=== PATIENT | male | born 1960 | race Caucasian/White ===

== ENCOUNTER 2020-02-07 10:47 | Inpatient (IN) | payer OTHER ==
[~2020-02-07] VITALS: Ht 175.3 cm; Wt 79.5 kg
[2020-02-07] MEDS ORDERED: MORPHINE SULFATE 4 MG/ML VIAL. IV/SQ PRN (11:45)
[2020-02-07] MEDS ORDERED: NITROGLYCERIN SUBLINGUAL 0.4 MG BOTTLE OF 25. SL PRN ×2 (11:45→15:00)
--- NOTE | 2020-02-07 11:50 | RAD ---
PORTABLE CHEST 1V Clinical Indication: Reason: chest pain Comparison: None. Findings: The cardiomediastinal silhouette is normal. Linear opacity in the peripheral left midlung may be discoid atelectasis or scarring. Lungs are otherwise clear. There is no pneumothorax. No pleural effusion is appreciated. No acute bone abnormality. IMPRESSION: Minimal peripheral left midlung discoid atelectasis or scarring. Electronically signed by: Karel Roman MD (02/07/2020 11:47 AM) [id number]
[2020-02-07 11:58] LABS: BASO % 1 % (0-3); EOS # 0.1 x10^3/uL (0.0-0.7); EOS % 2 % (0-3); HEMATOCRIT 47.1 % (39.0-53.0); HEMOGLOBIN 16.9 g/dL (13.0-17.5); LYMPH # 0.9 x10^3/uL (1.0-4.8); LYMPH % 17 % (24-48); MEAN CORPUSCULAR HEMOGLOBIN 32 pg (25-35); MEAN CORPUSCULAR HGB CONC 36 g/dL (31-37); MEAN CORPUSCULAR VOLUME 89 fL (79-100); MONO # 0.3 x10^3/uL (0.0-1.1); MONO % 7 % (0-9); NEUT # 3.9 x10^3/uL (1.8-7.7); NEUT % 74 % (31-73); PLATELET COUNT 161 x10^3/uL (140-400); RED BLOOD COUNT 5.28 x10^6/uL (4.30-5.70); RED CELL DISTRIBUTION WIDTH 12.8 % (11.5-14.5); WHITE BLOOD COUNT 5.2 x10^3/uL (4.0-11.0)
[2020-02-07 12:08] LABS: CALCIUM 8.7 mg/dL (8.5-10.1); CREATININE 1.1 mg/dL (0.7-1.3); GFR 67.8; POTASSIUM 4.4 mmol/L (3.5-5.1)
[2020-02-07 12:15] LABS: ALBUMIN 3.4 g/dL (3.4-5.0); ALBUMIN/GLOBULIN RATIO 1.1 (1.0-1.7); MAGNESIUM 1.7 mg/dL (1.8-2.4); TOTAL BILIRUBIN 0.5 mg/dL (0.2-1.0); TOTAL PROTEIN 6.6 g/dL (6.4-8.2)
[2020-02-07] MEDS ORDERED: ASPIRIN 325 MG TABLET PO ONE (12:15)
[2020-02-07 12:17] LABS: PROTHROMBIN TIME PATIENT 12.2 SEC (11.7-14.0)
[2020-02-07 12:23] LABS: BILIRUBIN,URINE NEGATIVE (NEG); CLARITY,URINE CLEAR; COLOR,URINE YELLOW; NITRITE,URINE NEGATIVE (NEG); PROTEIN,URINE NEGATIVE (NEG-TRACE); UROBILINOGEN,URINE 0.2 mg/dL (0.2 mg/dL)
[2020-02-07 12:30] LABS: AMPHETAMINE/METHAMPHETAMINE NEG (NEG); BARBITURATES NEG (NEG); BENZODIAZEPINES NEG (NEG); CANNABINOIDS NEG (NEG); COCAINE NEG (NEG); METHADONE NEG (NEG); OPIATES NEG (NEG); PHENCYCLIDINE NEG (NEG)
[2020-02-07 13:00] LABS: BACTERIA,URINE 0 /HPF (0-FEW); RBC,URINE OCC /HPF (0-2); WBC,URINE 0 /HPF (0-4)
--- NOTE | 2020-02-07 14:31 | PDOC1 ---
History and Physical Date of Admission Date of Admission DATE: 02/07/20 TIME: 14:30 Identification/Chief Complaint Chief Complaint seen in er with acute NSTEMI 60 year old male with no significant medical history who presents to the ED today complaining of 5 out of 10 left jaw pain that occurred yesterday between the time he woke up to around midday and subsided. Patient describes the pain as discomfort. Denies anything specifically relieving or worsening the pain. He states he thought he probably clenched his teeth the wrong way hence the reason for the pain. this morning he Awoke up with a similar pain that radiated into his chest and left arm and also going to the right arm. 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 Past Medical History Cardiovascular: Hyperlipidemia Psych: No pertinent hx Rheumatologic: No pertinent hx Infectious disease: No pertinent hx Renal/: No pertinent hx Endocrine: No pertinent hx, Diabetes Family History Family History: Heart Disease Family History: Parent (FATHER HAD STENTS IN HIS 80'S) Social History Smoke: No ALCOHOL: none Drugs: None Current Medications Current Medications Current Medications Aspirin (Senia Aspirin) 325 mg 1X ONCE PO ; Start 02/07/20 at 12:15; Stop 02/07/20 at 12:16; Status DC Nitroglycerin (Nitrostat) 0.4 mg PRN Q5MIN PRN SL CP RATING > 1/10; Start 02/07/20 at 11:45; Stop 02/08/20 at 11:44 Morphine Sulfate (Morphine Sulfate) 4 mg PRN Q15MIN PRN IV/SQ PAIN GREATER THAN 3/10; Start 02/07/20 at 11:45; Stop 02/08/20 at 11:44 Allergies Allergies: Coded Allergies: No Known Drug Allergies (Unverified , 02/07/20) ROS Review of System Review of Systems: Constitutional: Denies fever or chills. [] Eyes: Denies change in visual acuity. [] HENT: Denies nasal congestion or sore throat. [] Respiratory: Denies cough or shortness of breath. [] Cardiovascular: Reports chest pain, BILATERAL MANDIDULAR PAIN GI: Denies abdominal pain, nausea, vomiting, bloody stools or diarrhea. [] : Denies dysuria. [] Musculoskeletal: Denies back pain or joint pain. [] Integument: Denies rash. [] Neurologic: Denies headache, focal weakness or sensory changes. [] Psychiatric: Denies depression or anxiety. 14 PT ROS OTHERWISE NEG PSYCHOLOGICAL ROS: No: Anxiety, Behavioral Disorder, Concentration difficultie, Decreased libido, Depression, Disorientation, Hallucinations, Hostility, Irritablity, Memory difficulties, Mood Swings, Obsessive thoughts, Physical abuse, Sexual abuse, Sleep disturbances, Suicidal ideation, Other ALLERGY AND IMMUNOLOGY: No: Hives, Insect Bite Sensitivity, Itchy/Watery Eyes, Nasal Congestion, Post Nasal Drip, Seasonal Allergies, Other Hematological and Lymphatic: No: Bleeding Problems, Blood Clots, Blood Transfusions, Brusing, Night Sweats, Pallor, Swollen Lymph Nodes, Other Respiratory: No: Cough, Hemoptysis, Orthopnea, Pleuritic Pain, Shortness of breath, SOB with excertion, Sputum Changes, Stridor, Tachypnea, Wheezing, Other Cardiovascular: yes Chest Pain Gastrointestinal: No Nausea, No Vomiting, No Abdominal Pain, No Diarrhea, No Constipation, No Melena, No Hematochezia, No Other Musculoskeletal: No Gait Disturbance, No Joint Pain, No Joint Stiffness, No Joint Swelling, No Muscle Pain, No Muscular Weakness, No Pain In:, No Swelling In:, No Other Skin: No Dry Skin, No Eczema, No Hair Changes, No Lumps, No Mole Changes, No Mottling, No Nail Changes, No Pruritus, No Rash, No Skin Lesion Changes, No Other, No Acne Physical Exam Physical Exam Well developed, well nourished, no acute distress, non-toxic appearance. [] HENT: Normocephalic, atraumatic, bilateral external ears normal, oropharynx moist, no oral exudates, nose normal. [] Eyes: PERRLA, EOMI, conjunctiva normal, no discharge. [] Neck: Normal range of motion, no tenderness, supple, no stridor. [] Cardiovascular:Heart rate regular rhythm, no murmur [] Lungs & Thorax: Bilateral breath sounds clear to auscultation [] Abdomen: Bowel sounds normal, soft, no tenderness, no masses, no pulsatile masses. [] Skin: Warm, dry, no erythema, no rash. [] Back: No tenderness, no CVA tenderness. [] Extremities: No tenderness, no cyanosis, no clubbing, ROM intact, no edema. [] Neurologic: Alert and oriented X 3, normal motor function, normal sensory func tion, no focal deficits noted. [] Psychologic: Affect normal, judgment normal, mood normal. [] General: No acute distress HEENT: Atraumatic, PERRLA, EOMI, Mucous membr. moist/pink Lungs: Clear to auscultation, Normal air movement Heart: RRR, no gallops, no murmurs Breasts: Not examined Abdomen: Normal bowel sounds, Soft Rectal Exam: not examined Extremities: No cyanosis, No edema Skin: No significant lesion Neuro: Normal speech, Strength at 5/5 X4 ext, Sensation intact, Cranial nerves 3-12 NL Psych/Mental Status: Mental status NL, Mood NL Vitals Vitals Vital Signs Date Time Temp Pulse Resp B/P (MAP) Pulse Ox O2 Delivery O2 Flow Rate FiO2 02/07/20 10:50 98.4 92 16 168/87 (114) 98 Room Air 98.4 Labs Labs Laboratory Tests Test 02/07/20 11:01 02/07/20 11:54 White Blood Count 5.2 x10^3/uL (4.0-11.0) Red Blood Count 5.28 x10^6/uL (4.30-5.70) Hemoglobin 16.9 g/dL (13.0-17.5) Hematocrit 47.1 % (39.0-53.0) Mean Corpuscular Volume 89 fL (79-100) Mean Corpuscular Hemoglobin 32 pg (25-35) Mean Corpuscular Hemoglobin Concent 36 g/dL (31-37) Red Cell Distribution Width 12.8 % (11.5-14.5) Platelet Count 161 x10^3/uL (140-400) Neutrophils (%) (Auto) 74 % (31-73) Lymphocytes (%) (Auto) 17 % (24-48) Monocytes (%) (Auto) 7 % (0-9) Eosinophils (%) (Auto) 2 % (0-3) Basophils (%) (Auto) 1 % (0-3) Neutrophils # (Auto) 3.9 x10^3/uL (1.8-7.7) Lymphocytes # (Auto) 0.9 x10^3/uL (1.0-4.8) Monocytes # (Auto) 0.3 x10^3/uL (0.0-1.1) Eosinophils # (Auto) 0.1 x10^3/uL (0.0-0.7) Basophils # (Auto) 0.0 x10^3/uL (0.0-0.2) Prothrombin Time 12.2 SEC (11.7-14.0) Prothromb Time International Ratio 0.9 (0.8-1.1) Sodium Level 137 mmol/L (136-145) Potassium Level 4.4 mmol/L (3.5-5.1) Chloride Level 100 mmol/L (98-107) Carbon Dioxide Level 30 mmol/L (21-32) Anion Gap 7 (6-14) Blood Urea Nitrogen 14 mg/dL (8-26) Creatinine 1.1 mg/dL (0.7-1.3) Estimated GFR (Cockcroft-Gault) 67.8 BUN/Creatinine Ratio 13 (6-20) Glucose Level 275 mg/dL (70-99) Calcium Level 8.7 mg/dL (8.5-10.1) Magnesium Level 1.7 mg/dL (1.8-2.4) Total Bilirubin 0.5 mg/dL (0.2-1.0) Aspartate Amino Transf (AST/SGOT) 21 U/L (15-37) Alanine Aminotransferase (ALT/SGPT) 45 U/L (16-63) Alkaline Phosphatase 135 U/L (46-116) Troponin I Quantitative 0.032 ng/mL (0.000-0.055) BE-Oho-R-Type Natriuretic Peptide 50 pg/mL (0-124) Total Protein 6.6 g/dL (6.4-8.2) Albumin 3.4 g/dL (3.4-5.0) Albumin/Globulin Ratio 1.1 (1.0-1.7) Thyroid Stimulating Hormone (TSH) 1.375 uIU/mL (0.358-3.74) Urine Collection Type Unknown Urine Color Yellow Urine Clarity Clear Urine pH 7.0 (<5.0-8.0) Urine Specific [place] 1.015 (1.000-1.030) Urine Protein Negative mg/dL (NEG-TRACE) Urine Glucose (UA) 500 mg/dL (NEG) Urine Ketones (Stick) Negative mg/dL (NEG) Urine Blood Negative (NEG) Urine Nitrite Negative (NEG) Urine Bilirubin Negative (NEG) Urine Urobilinogen Dipstick 0.2 mg/dL (0.2 mg/dL) Urine Leukocyte Esterase Negative (NEG) Urine RBC Occ /HPF (0-2) Urine WBC 0 /HPF (0-4) Urine Bacteria 0 /HPF (0-FEW) Urine Mucus Mod /LPF Urine Opiates Screen Neg (NEG) Urine Methadone Screen Neg (NEG) Urine Barbiturates Neg (NEG) Urine Phencyclidine Screen Neg (NEG) Urine Amphetamine/Methamphetamine Neg (NEG) Urine Benzodiazepines Screen Neg (NEG) Urine Cocaine Screen Neg (NEG) Urine Cannabinoids Screen Neg (NEG) Urine Ethyl Alcohol Neg (NEG) Laboratory Tests Test 02/07/20 11:01 02/07/20 11:54 White Blood Count 5.2 x10^3/uL (4.0-11.0) Red Blood Count 5.28 x10^6/uL (4.30-5.70) Hemoglobin 16.9 g/dL (13.0-17.5) Hematocrit 47.1 % (39.0-53.0) Mean Corpuscular Volume 89 fL (79-100) Mean Corpuscular Hemoglobin 32 pg (25-35) Mean Corpuscular Hemoglobin Concent 36 g/dL (31-37) Red Cell Distribution Width 12.8 % (11.5-14.5) Platelet Count 161 x10^3/uL (140-400) Neutrophils (%) (Auto) 74 % (31-73) Lymphocytes (%) (Auto) 17 % (24-48) Monocytes (%) (Auto) 7 % (0-9) Eosinophils (%) (Auto) 2 % (0-3) Basophils (%) (Auto) 1 % (0-3) Neutrophils # (Auto) 3.9 x10^3/uL (1.8-7.7) Lymphocytes # (Auto) 0.9 x10^3/uL (1.0-4.8) Monocytes # (Auto) 0.3 x10^3/uL (0.0-1.1) Eosinophils # (Auto) 0.1 x10^3/uL (0.0-0.7) Basophils # (Auto) 0.0 x10^3/uL (0.0-0.2) Prothrombin Time 12.2 SEC (11.7-14.0) Prothromb Time International Ratio 0.9 (0.8-1.1) Sodium Level 137 mmol/L (136-145) Potassium Level 4.4 mmol/L (3.5-5.1) Chloride Level 100 mmol/L (98-107) Carbon Dioxide Level 30 mmol/L (21-32) Anion Gap 7 (6-14) Blood Urea Nitrogen 14 mg/dL (8-26) Creatinine 1.1 mg/dL (0.7-1.3) Estimated GFR (Cockcroft-Gault) 67.8 BUN/Creatinine Ratio 13 (6-20) Glucose Level 275 mg/dL (70-99) Calcium Level 8.7 mg/dL (8.5-10.1) Magnesium Level 1.7 mg/dL (1.8-2.4) Total Bilirubin 0.5 mg/dL (0.2-1.0) Aspartate Amino Transf (AST/SGOT) 21 U/L (15-37) Alanine Aminotransferase (ALT/SGPT) 45 U/L (16-63) Alkaline Phosphatase 135 U/L (46-116) Troponin I Quantitative 0.032 ng/mL (0.000-0.055) AM-Bog-Y-Type Natriuretic Peptide 50 pg/mL (0-124) Total Protein 6.6 g/dL (6.4-8.2) Albumin 3.4 g/dL (3.4-5.0) Albumin/Globulin Ratio 1.1 (1.0-1.7) Thyroid Stimulating Hormone (TSH) 1.375 uIU/mL (0.358-3.74) Urine Collection Type Unknown Urine Color Yellow Urine Clarity Clear Urine pH 7.0 (<5.0-8.0) Urine Specific [place] 1.015 (1.000-1.030) Urine Protein Negative mg/dL (NEG-TRACE) Urine Glucose (UA) 500 mg/dL (NEG) Urine Ketones (Stick) Negative mg/dL (NEG) Urine Blood Negative (NEG) Urine Nitrite Negative (NEG) Urine Bilirubin Negative (NEG) Urine Urobilinogen Dipstick 0.2 mg/dL (0.2 mg/dL) Urine Leukocyte Esterase Negative (NEG) Urine RBC Occ /HPF (0-2) Urine WBC 0 /HPF (0-4) Urine Bacteria 0 /HPF (0-FEW) Urine Mucus Mod /LPF Urine Opiates Screen Neg (NEG) Urine Methadone Screen Neg (NEG) Urine Barbiturates Neg (NEG) Urine Phencyclidine Screen Neg (NEG) Urine Amphetamine/Methamphetamine Neg (NEG) Urine Benzodiazepines Screen Neg (NEG) Urine Cocaine Screen Neg (NEG) Urine Cannabinoids Screen Neg (NEG) Urine Ethyl Alcohol Neg (NEG) Images Images PORTABLE CHEST 1V Clinical Indication: Reason: chest pain Comparison: None. Findings: The cardiomediastinal silhouette is normal. Linear opacity in the peripheral left midlung may be discoid atelectasis or scarring. Lungs are otherwise clear. There is no pneumothorax. No pleural effusion is appreciated. No acute bone abnormality. IMPRESSION: Minimal peripheral left midlung discoid atelectasis or scarring. Electronically signed by: Karel Gilliland MD (02/07/2020 11:47 AM) [id number] DICTATED and SIGNED BY: KAREL GILLILAND MD DATE: 02/07/20 1147 VTE Prophylaxis Ordered VTE Prophylaxis Devices: Yes VTE Pharmacological Prophylaxi: Yes Assessment/Plan Assessment/Plan IMPRESSION Acute NSTEMI diabetes PLAN ADMIT CVC BED Consult cardiology sq lovenox 80 mg bid statin rx beta-leobardo ASA CARDIAC CATH IN am FLP D/W ER DR Justifications for Admission Other Justification DANIELLE BOGGS MD Feb 07, 2020 14:31
--- NOTE | 2020-02-07 14:56 | PHYS DOC ---
Past Medical History Past Medical History: No Pertinent History Past Surgical History: No Surgical History Smoking Status: Former Smoker Alcohol Use: None General Adult EDM: Chief Complaint: CHEST PAIN HPI: HPI: Patient is a 60 year old male with no significant medical history who presents to the ED today complaining of 5 out of 10 left jaw pain that occurred yesterday between the time he woke up to around midday and subsided. Patient describes the pain as discomfort. Denies anything specifically relieving or worsening the pain. He states he thought he probably clenched his teeth the wrong way hence the reason for the pain. He states this morning he woke up with a similar pain that radiated into his chest and left arm and also going to the right arm. He states at this point he was concerned and came to the ED. He states the pain was just "a discomfort". He states he does not have any pain right now. Review of Systems: Review of Systems: Constitutional: Denies fever or chills. [] Eyes: Denies change in visual acuity. [] HENT: Denies nasal congestion or sore throat. [] Respiratory: Denies cough or shortness of breath. [] Cardiovascular: Reports chest pain GI: Denies abdominal pain, nausea, vomiting, bloody stools or diarrhea. [] : Denies dysuria. [] Musculoskeletal: Denies back pain or joint pain. [] Integument: Denies rash. [] Neurologic: Denies headache, focal weakness or sensory changes. [] Psychiatric: Denies depression or anxiety. [] Heart Score: HEART Score for Chest Pain: HEART Score for Chest Pain Response (Comments) Value History Slighlty/Non-Suspicious 0 ECG Normal 0 Age >45 - < 65 1 Risk Factors No Risk Factors 0 Troponin < Normal Limit 0 Total 1 Risk Factors: Risk Factors: DM, Current or recent (<one month) smoker, HTN, HLP, family history of CAD, obesity. Risk Scores: Score 0 - 3: 2.5% MACE over next 6 weeks - Discharge Home Score 4 - 6: 20.3% MACE over next 6 weeks - Admit for Clinical Observation Score 7 - 10: 72.7% MACE over next 6 weeks - Early Invasive Strategies Current Medications: Current Medications Medications (Trade) Dose Ordered Sig/[facility] Start Time Stop Time Status Last Admin Dose Admin Aspirin (Senia Aspirin) 325 mg 1X ONCE 02/07/20 12:15 02/07/20 12:16 DC Morphine Sulfate (Morphine Sulfate) 4 mg PRN Q15MIN PRN 02/07/20 11:45 02/08/20 11:44 Nitroglycerin (Nitrostat) 0.4 mg PRN Q5MIN PRN 02/07/20 11:45 02/08/20 11:44 Allergies: Allergies: Allergies Coded Allergies Type Severity Reaction Last Updated Verified No Known Drug Allergies 02/07/20 No Physical Exam: PE: Constitutional: Well developed, well nourished, no acute distress, non-toxic appearance. [] HENT: Normocephalic, atraumatic, bilateral external ears normal, oropharynx moist, no oral exudates, nose normal. [] Eyes: PERRLA, EOMI, conjunctiva normal, no discharge. [] Neck: Normal range of motion, no tenderness, supple, no stridor. [] Cardiovascular:Heart rate regular rhythm, no murmur [] Lungs & Thorax: Bilateral breath sounds clear to auscultation [] Abdomen: Bowel sounds normal, soft, no tenderness, no masses, no pulsatile miguel s. [] Skin: Warm, dry, no erythema, no rash. [] Back: No tenderness, no CVA tenderness. [] Extremities: No tenderness, no cyanosis, no clubbing, ROM intact, no edema. [] Neurologic: Alert and oriented X 3, normal motor function, normal sensory function, no focal deficits noted. [] Psychologic: Affect normal, judgement normal, mood normal. [] Current Patient Data: Labs: Laboratory Tests Test 02/07/20 11:01 02/07/20 11:54 White Blood Count 5.2 x10^3/uL (4.0-11.0) Red Blood Count 5.28 x10^6/uL (4.30-5.70) Hemoglobin 16.9 g/dL (13.0-17.5) Hematocrit 47.1 % (39.0-53.0) Mean Corpuscular Volume 89 fL (79-100) Mean Corpuscular Hemoglobin 32 pg (25-35) Mean Corpuscular Hemoglobin Concent 36 g/dL (31-37) Red Cell Distribution Width 12.8 % (11.5-14.5) Platelet Count 161 x10^3/uL (140-400) Neutrophils (%) (Auto) 74 % (31-73) H Lymphocytes (%) (Auto) 17 % (24-48) L Monocytes (%) (Auto) 7 % (0-9) Eosinophils (%) (Auto) 2 % (0-3) Basophils (%) (Auto) 1 % (0-3) Neutrophils # (Auto) 3.9 x10^3/uL (1.8-7.7) Lymphocytes # (Auto) 0.9 x10^3/uL (1.0-4.8) L Monocytes # (Auto) 0.3 x10^3/uL (0.0-1.1) Eosinophils # (Auto) 0.1 x10^3/uL (0.0-0.7) Basophils # (Auto) 0.0 x10^3/uL (0.0-0.2) Prothrombin Time 12.2 SEC (11.7-14.0) Prothrombin Time INR 0.9 (0.8-1.1) Sodium Level 137 mmol/L (136-145) Potassium Level 4.4 mmol/L (3.5-5.1) Chloride Level 100 mmol/L (98-107) Carbon Dioxide Level 30 mmol/L (21-32) Anion Gap 7 (6-14) Blood Urea Nitrogen 14 mg/dL (8-26) Creatinine 1.1 mg/dL (0.7-1.3) Estimated GFR (Cockcroft-Gault) 67.8 BUN/Creatinine Ratio 13 (6-20) Glucose Level 275 mg/dL (70-99) H Calcium Level 8.7 mg/dL (8.5-10.1) Magnesium Level 1.7 mg/dL (1.8-2.4) L Total Bilirubin 0.5 mg/dL (0.2-1.0) Aspartate Amino Transferase (AST) 21 U/L (15-37) Alanine Aminotransferase (ALT) 45 U/L (16-63) Alkaline Phosphatase 135 U/L (46-116) H Troponin I Quantitative 0.032 ng/mL (0.000-0.055) DK-Fee-H-Type Natriuretic Peptide 50 pg/mL (0-124) Total Protein 6.6 g/dL (6.4-8.2) Albumin 3.4 g/dL (3.4-5.0) Albumin/Globulin Ratio 1.1 (1.0-1.7) Thyroid Stimulating Hormone (TSH) 1.375 uIU/mL (0.358-3.74) Urine Collection Type Unknown Urine Color Yellow Urine Clarity Clear Urine pH 7.0 (<5.0-8.0) Urine Specific [place] 1.015 (1.000-1.030) Urine Protein Negative mg/dL (NEG-TRACE) Urine Glucose (UA) 500 mg/dL (NEG) Urine Ketones (Stick) Negative mg/dL (NEG) Urine Blood Negative (NEG) Urine Nitrite Negative (NEG) Urine Bilirubin Negative (NEG) Urine Urobilinogen Dipstick 0.2 mg/dL (0.2 mg/dL) Urine Leukocyte Esterase Negative (NEG) Urine RBC Occ /HPF (0-2) Urine WBC 0 /HPF (0-4) Urine Bacteria 0 /HPF (0-FEW) Urine Mucus Mod /LPF Urine Opiates Screen Neg (NEG) Urine Methadone Screen Neg (NEG) Urine Barbiturates Neg (NEG) Urine Phencyclidine Screen Neg (NEG) Urine Amphetamine/Methamphetamine Neg (NEG) Urine Benzodiazepines Screen Neg (NEG) Urine Cocaine Screen Neg (NEG) Urine Cannabinoids Screen Neg (NEG) Urine Ethyl Alcohol Neg (NEG) Laboratory Tests 02/07/20 11:01 Laboratory Tests 02/07/20 11:01 Vital Signs: Vital Signs Date Time Temp Pulse Resp B/P (MAP) Pulse Ox O2 Delivery O2 Flow Rate FiO2 02/07/20 14:45 72 14 134/71 (92) 96 Room Air 02/07/20 10:50 98.4 98.4 EKG: EK interpreted by Dr. Lutz sinus rhythm HR 85 no STEMI[] Radiology/Procedures: Radiology/Procedures: []PROCEDURE: PORTABLE CHEST 1V PORTABLE CHEST 1V Clinical Indication: Reason: chest pain Comparison: None. Findings: The cardiomediastinal silhouette is normal. Linear opacity in the peripheral left midlung may be discoid atelectasis or scarring. Lungs are otherwise clear. There is no pneumothorax. No pleural effusion is appreciated. No acute bone abnormality. IMPRESSION: Minimal peripheral left midlung discoid atelectasis or scarring. Electronically signed by: Karel Roman MD (02/07/2020 11:47 AM) [id number] DICTATED and SIGNED BY: KAREL ROMAN MD DATE: 02/07/20 1147 Course & Med Decision Making: Course & Med Decision Making Pertinent Labs and Imaging studies reviewed. (See chart for details) This is a 60-year-old male patient presenting to the ED today complaining of left-sided jaw pain that began yesterday and subsided then returned this morning and radiated into his left chest and left arm as well as right arm. Patient has no chest pain on arrival to the ED. No jaw pain. EKG is negative, initial troponin was 0.032. CBC with no acute findings, chest x-ray with nothing acute, CMP with glucose of 275, denies any previous history of diabetes. Spoke with Dr. Ferguson who accepted patient for admission Repeat troponin at 1403 was 0.[address] Dominique. Lovenox BID. [facility] AM. 1424 Dr. Dominique in the ED talking to patient and . Deondre Disclaimer: Deondre Disclaimer: This electronic medical record was generated, in whole or in part, using a voice recognition dictation system. Departure Departure Impression: Primary Impression: Chest pain Qualified Codes: R07.9 - Chest pain, unspecified Additional Impressions: Hyperglycemia NSTEMI (non-ST elevated myocardial infarction) Disposition: 09 ADMITTED INPT THIS HOSP Condition: STABLE Referrals: NON,STAFF (PCP) VIKAS PATRICK APRN Feb 07, 2020 14:56
[2020-02-07] MEDS ORDERED: ONDANSETRON PF 4 MG/2 ML VIAL. IV PRN ×2 (15:00→18:30)
[2020-02-07] MEDS ORDERED: MORPHINE SULFATE 2 MG/ML VIAL. IV PRN (15:00)
--- NOTE | 2020-02-07 15:20 | PDOC2 ---
CARDIOLOGY CONSULT NOTE DATE OF SERVICE: DATE: 02/07/20 TIME: 15:18 CHIEF COMPLAINT: Chest pain and jaw pain HPI: 60-year-old man with a past medical history as noted below who comes into the ER with persistent jaw and chest pain. Cardiac enzymes are elevated. Current EKG is unremarkable. Patient will be treated as a non-STEMI. He has been in his usual state of health up until yesterday where he noted some persistent jaw pain for several hours. After he woke up this morning the jaw pain went into his chest and therefore he sought medical attention. He had baseline denies any specific angina, dyspnea, orthopnea or PND. 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 He is and works in manual labor at a [employer] FAMHX: Noncontributory ALLERGIES: Allergies Coded Allergies Type Severity Reaction Last Updated Verified No Known Drug Allergies 02/07/20 No ROS: Negative for 10 out of 14 systems reviewed unless otherwise mentioned above in HPI PHYSICAL EXAM: Vital Signs/I&O: Vital Signs Date Time Temp Pulse Resp B/P (MAP) Pulse Ox O2 Delivery O2 Flow Rate FiO2 02/07/20 14:45 72 14 134/71 (92) 96 Room Air 02/07/20 10:50 98.4 98.4 Physical Exam: The patient appeared well nourished and normally developed. Head exam is unremarkable. No scleral icterus or corneal arcus noted. Neck is without jugular venous distension, thyromegaly, or carotid bruits. Carotid upstrokes are brisk bilaterally. Lungs are clear to auscultation and percussion. Cardiac exam reveals the PMI to be normally sized and situated. Rhythm is regular. First and second heart sounds normal. No murmurs, rubs or gallops. Abdominal exam reveals normal bowel sounds, no masses, no organomegaly and no aortic enlargement. Extremities are nonedematous and both femoral and pedal pulses are normal. Msk: No traumua Neuro: No focal deficits DIAGNOSTIC TESTING: Troponin elevated 0.325 EKG is unremarkable Remainder of labs are unremarkable Lab Laboratory Tests Test 02/07/20 11:01 02/07/20 11:54 White Blood Count 5.2 x10^3/uL (4.0-11.0) Red Blood Count 5.28 x10^6/uL (4.30-5.70) Hemoglobin 16.9 g/dL (13.0-17.5) Hematocrit 47.1 % (39.0-53.0) Mean Corpuscular Volume 89 fL (79-100) Mean Corpuscular Hemoglobin 32 pg (25-35) Mean Corpuscular Hemoglobin Concent 36 g/dL (31-37) Red Cell Distribution Width 12.8 % (11.5-14.5) Platelet Count 161 x10^3/uL (140-400) Neutrophils (%) (Auto) 74 % (31-73) H Lymphocytes (%) (Auto) 17 % (24-48) L Monocytes (%) (Auto) 7 % (0-9) Eosinophils (%) (Auto) 2 % (0-3) Basophils (%) (Auto) 1 % (0-3) Neutrophils # (Auto) 3.9 x10^3/uL (1.8-7.7) Lymphocytes # (Auto) 0.9 x10^3/uL (1.0-4.8) L Monocytes # (Auto) 0.3 x10^3/uL (0.0-1.1) Eosinophils # (Auto) 0.1 x10^3/uL (0.0-0.7) Basophils # (Auto) 0.0 x10^3/uL (0.0-0.2) Prothrombin Time 12.2 SEC (11.7-14.0) Prothromb Time International Ratio 0.9 (0.8-1.1) Sodium Level 137 mmol/L (136-145) Potassium Level 4.4 mmol/L (3.5-5.1) Chloride Level 100 mmol/L (98-107) Carbon Dioxide Level 30 mmol/L (21-32) Anion Gap 7 (6-14) Blood Urea Nitrogen 14 mg/dL (8-26) Creatinine 1.1 mg/dL (0.7-1.3) Estimated GFR (Cockcroft-Gault) 67.8 BUN/Creatinine Ratio 13 (6-20) Glucose Level 275 mg/dL (70-99) H Calcium Level 8.7 mg/dL (8.5-10.1) Total Bilirubin 0.5 mg/dL (0.2-1.0) Aspartate Amino Transf (AST/SGOT) 21 U/L (15-37) Alkaline Phosphatase 135 U/L (46-116) H Total Protein 6.6 g/dL (6.4-8.2) Albumin 3.4 g/dL (3.4-5.0) Albumin/Globulin Ratio 1.1 (1.0-1.7) Thyroid Stimulating Hormone (TSH) 1.375 uIU/mL (0.358-3.74) Urine Collection Type Unknown Urine Color Yellow Urine Clarity Clear Urine pH 7.0 (<5.0-8.0) Urine Specific [place] 1.015 (1.000-1.030) Urine Protein Negative mg/dL (NEG-TRACE) Urine Glucose (UA) 500 mg/dL (NEG) Urine Ketones (Stick) Negative mg/dL (NEG) Urine Blood Negative (NEG) Urine Nitrite Negative (NEG) Urine Bilirubin Negative (NEG) Urine Urobilinogen Dipstick 0.2 mg/dL (0.2 mg/dL) Urine Leukocyte Esterase Negative (NEG) Urine RBC Occ /HPF (0-2) Urine WBC 0 /HPF (0-4) Urine Bacteria 0 /HPF (0-FEW) Urine Mucus Mod /LPF Urine Opiates Screen Neg (NEG) Urine Methadone Screen Neg (NEG) Urine Barbiturates Neg (NEG) Urine Phencyclidine Screen Neg (NEG) Urine Amphetamine/Methamphetamine Neg (NEG) Urine Benzodiazepines Screen Neg (NEG) Urine Cocaine Screen Neg (NEG) Urine Cannabinoids Screen Neg (NEG) Urine Ethyl Alcohol Neg (NEG) Laboratory Tests 02/07/20 11:01 ASSESSMENT: 1. Non-STEMI with typical chest pain presentation PLAN: 1. Discussed the risks and benefits of cardiac catheterization. Patient wishes to proceed. We will plan for this tomorrow. 2. Continue aspirin, Lovenox and statin therapy. Blood pressure management for goal blood pressure of less than 140/90 ARIC JAMES MD Feb 07, 2020 15:20
[2020-02-07 17:23] VITALS: BP 169/125
[2020-02-07 17:38] VITALS: BP 137/84
[2020-02-07] MEDS ORDERED: DOCUSATE SODIUM 100 MG CAPSULE. PO PRN (18:30)
[2020-02-07] MEDS ORDERED: ZOLPIDEM 5 MG TABLET. PO PRN (18:30)
[2020-02-07] MEDS ORDERED: SODIUM PHOSPHATES 19/7GM 133 ML ENEMA. PR PRN (18:30)
[2020-02-07] MEDS ORDERED: cloNIDine HCL 0.1 MG TABLET PO PRN (18:30)
[2020-02-07] MEDS ORDERED: MAG HYDROX/ALUMINUM HYD/SIMETH 30 ML ORAL.SUSP PO PRN (18:30)
[2020-02-07] MEDS ORDERED: guaiFENesin ORAL 200 MG/10 ML LIQUID. PO PRN (18:30)
[2020-02-07] MEDS ORDERED: 0.9 % SODIUM CHLORIDE 10 ML DISP.SYRIN. IV PRN (18:30)
[2020-02-07] MEDS ORDERED: DEXTROSE 50% 25 GM / 50ML DISP.SYRIN. IV PRN (18:30)
[2020-02-07] MEDS ORDERED: ALBUTEROL SULFATE 2.5 MG/3 ML NEBU. NEB PRN (18:30)
[2020-02-07] MEDS ORDERED: ACETAMINOPHEN 325 MG TABLET. PO PRN (18:30)
[2020-02-07] MEDS ORDERED: LORazepam 0.5 MG TABLET PO PRN (18:30)
[2020-02-07] MEDS: IV NORMAL SALINE 1000ML BAG 1,000 ML IV SCH (18:50)
[2020-02-07] MEDS: MAGNESIUM OXIDE 400 MG TABLET PO SCH (18:55)
[2020-02-07] MEDS: INSULIN LISPRO 300 UNITS/3 ML VIAL. SQ SCH (18:58)
[2020-02-07 19:20] VITALS: BP 140/69
[2020-02-07] MEDS: METOPROLOL TART IMMED RELEASE 25 MG TABLET. PO SCH (20:34)
[2020-02-07] MEDS: ATORVASTATIN CALCIUM 40 MG TABLET. PO SCH (20:34)
[2020-02-07 22:35] VITALS: BP 152/86
[2020-02-08] VITALS (14 sets, daily range): BP systolic 108–146; BP diastolic 58–83
[2020-02-08] MEDS: IV NORMAL SALINE 1000ML BAG 1,000 ML IV SCH ×2 (05:11→14:16)
[2020-02-08 06:40] LABS: BASO % 1 % (0-3); CALCIUM 8.2 mg/dL (8.5-10.1); EOS # 0.1 x10^3/uL (0.0-0.7); EOS % 2 % (0-3); GFR 75.7; HEMOGLOBIN 16.5 g/dL (13.0-17.5); LYMPH # 1.6 x10^3/uL (1.0-4.8); LYMPH % 24 % (24-48); MEAN CORPUSCULAR HEMOGLOBIN 31 pg (25-35); MEAN CORPUSCULAR HGB CONC 35 g/dL (31-37); MEAN CORPUSCULAR VOLUME 90 fL (79-100); MONO # 0.5 x10^3/uL (0.0-1.1); MONO % 8 % (0-9); NEUT # 4.3 x10^3/uL (1.8-7.7); NEUT % 66 % (31-73); PLATELET COUNT 156 x10^3/uL (140-400); POTASSIUM 3.8 mmol/L (3.5-5.1); RED BLOOD COUNT 5.25 x10^6/uL (4.30-5.70); RED CELL DISTRIBUTION WIDTH 12.8 % (11.5-14.5); WHITE BLOOD COUNT 6.5 x10^3/uL (4.0-11.0)
--- NOTE | 2020-02-08 06:52 | NUR ---
0600 dose lovenox held for possible cath today. Day shift RN informed.
[2020-02-08 06:54] LABS: CHOLESTEROL 193 mg/dL (0-200); HDLC 25 mg/dL (40-60); TRIGLYCERIDES 817 mg/dL (0-150); VLDLC 163 mg/dL (0-40)
[2020-02-08 06:55] LABS: CHOLESTEROL/HDL RATIO 7.7
--- NOTE | 2020-02-08 07:49 | PDOC ---
[facility] PROGRESS NOTE Date of Service DOS: DATE: 02/08/20 TIME: 07:46 Chief Complaint Chief Complaint A/P: NSTEMI CVC BED Consult cardiology sq lovenox 80 mg bid statin rx beta-leobardo ASA CARDIAC CATH IN am FLP D/W ER History of Present Illness History of Present Illness Seen in er with acute NSTEMI 60 year old male with no significant medical history who presents to the ED today complaining of 5 out of 10 left jaw pain that occurred yesterday between the time he woke up to around midday and subsided. Patient describes the pain as discomfort. Denies anything specifically relieving or worsening the pain. He states he thought he probably clenched his teeth the wrong way hence the reason for the pain. This morning he Awoke up with a similar pain that radiated into his chest and left arm and also going to the right arm. He states at this point he was concerned and came to the ED TROPONIN I MILDLY ELEVATED. 02/08/20 Patients charts and labs reviewed. No acute events overnight. He is to have left heart cath today due to NSTEMI. Discussed with and RN. Vitals/I&O Vitals/I&O: Vital Signs Date Time Temp Pulse Resp B/P (MAP) Pulse Ox O2 Delivery O2 Flow Rate FiO2 02/08/20 02:50 97.7 64 18 128/66 (86) 98 Room Air 97.7 I & O 02/07/20 02/07/20 02/08/20 15:00 23:00 07:00 Intake Total 400 ml Balance 400 ml Physical Exam General: No acute distress Heart: Regular rate Lungs: Clear Abdomen: Normal bowel sounds, Soft Extremities: No cyanosis, No edema Skin: No significant lesion Labs Labs: Laboratory Tests Test 02/07/20 11:01 02/07/20 11:54 02/07/20 14:03 02/07/20 17:55 White Blood Count 5.2 x10^3/uL (4.0-11.0) Red Blood Count 5.28 x10^6/uL (4.30-5.70) Hemoglobin 16.9 g/dL (13.0-17.5) Hematocrit 47.1 % (39.0-53.0) Mean Corpuscular Volume 89 fL (79-100) Mean Corpuscular Hemoglobin 32 pg (25-35) Mean Corpuscular Hemoglobin Concent 36 g/dL (31-37) Red Cell Distribution Width 12.8 % (11.5-14.5) Platelet Count 161 x10^3/uL (140-400) Neutrophils (%) (Auto) 74 % (31-73) Lymphocytes (%) (Auto) 17 % (24-48) Monocytes (%) (Auto) 7 % (0-9) Eosinophils (%) (Auto) 2 % (0-3) Basophils (%) (Auto) 1 % (0-3) Neutrophils # (Auto) 3.9 x10^3/uL (1.8-7.7) Lymphocytes # (Auto) 0.9 x10^3/uL (1.0-4.8) Monocytes # (Auto) 0.3 x10^3/uL (0.0-1.1) Eosinophils # (Auto) 0.1 x10^3/uL (0.0-0.7) Basophils # (Auto) 0.0 x10^3/uL (0.0-0.2) Prothrombin Time 12.2 SEC (11.7-14.0) Prothromb Time International Ratio 0.9 (0.8-1.1) Sodium Level 137 mmol/L (136-145) Potassium Level 4.4 mmol/L (3.5-5.1) Chloride Level 100 mmol/L (98-107) Carbon Dioxide Level 30 mmol/L (21-32) Anion Gap 7 (6-14) Blood Urea Nitrogen 14 mg/dL (8-26) Creatinine 1.1 mg/dL (0.7-1.3) Estimated GFR (Cockcroft-Gault) 67.8 BUN/Creatinine Ratio 13 (6-20) Glucose Level 275 mg/dL (70-99) Calcium Level 8.7 mg/dL (8.5-10.1) Magnesium Level 1.7 mg/dL (1.8-2.4) Total Bilirubin 0.5 mg/dL (0.2-1.0) Aspartate Amino Transf (AST/SGOT) 21 U/L (15-37) Alanine Aminotransferase (ALT/SGPT) 45 U/L (16-63) Alkaline Phosphatase 135 U/L (46-116) Troponin I Quantitative 0.032 ng/mL (0.000-0.055) 0.325 ng/mL (0.000-0.055) 0.442 ng/mL (0.000-0.055) FI-Xnb-M-Type Natriuretic Peptide 50 pg/mL (0-124) Total Protein 6.6 g/dL (6.4-8.2) Albumin 3.4 g/dL (3.4-5.0) Albumin/Globulin Ratio 1.1 (1.0-1.7) Thyroid Stimulating Hormone (TSH) 1.375 uIU/mL (0.358-3.74) Urine Collection Type Unknown Urine Color Yellow Urine Clarity Clear Urine pH 7.0 (<5.0-8.0) Urine Specific [place] 1.015 (1.000-1.030) Urine Protein Negative mg/dL (NEG-TRACE) Urine Glucose (UA) 500 mg/dL (NEG) Urine Ketones (Stick) Negative mg/dL (NEG) Urine Blood Negative (NEG) Urine Nitrite Negative (NEG) Urine Bilirubin Negative (NEG) Urine Urobilinogen Dipstick 0.2 mg/dL (0.2 mg/dL) Urine Leukocyte Esterase Negative (NEG) Urine RBC Occ /HPF (0-2) Urine WBC 0 /HPF (0-4) Urine Bacteria 0 /HPF (0-FEW) Urine Mucus Mod /LPF Urine Opiates Screen Neg (NEG) Urine Methadone Screen Neg (NEG) Urine Barbiturates Neg (NEG) Urine Phencyclidine Screen Neg (NEG) Urine Amphetamine/Methamphetamine Neg (NEG) Urine Benzodiazepines Screen Neg (NEG) Urine Cocaine Screen Neg (NEG) Urine Cannabinoids Screen Neg (NEG) Urine Ethyl Alcohol Neg (NEG) Test 02/07/20 18:51 02/07/20 22:42 02/08/20 05:25 Glucose (Fingerstick) 251 mg/dL (70-99) 116 mg/dL (70-99) White Blood Count 6.5 x10^3/uL (4.0-11.0) Red Blood Count 5.25 x10^6/uL (4.30-5.70) Hemoglobin 16.5 g/dL (13.0-17.5) Hematocrit 47.0 % (39.0-53.0) Mean Corpuscular Volume 90 fL (79-100) Mean Corpuscular Hemoglobin 31 pg (25-35) Mean Corpuscular Hemoglobin Concent 35 g/dL (31-37) Red Cell Distribution Width 12.8 % (11.5-14.5) Platelet Count 156 x10^3/uL (140-400) Neutrophils (%) (Auto) 66 % (31-73) Lymphocytes (%) (Auto) 24 % (24-48) Monocytes (%) (Auto) 8 % (0-9) Eosinophils (%) (Auto) 2 % (0-3) Basophils (%) (Auto) 1 % (0-3) Neutrophils # (Auto) 4.3 x10^3/uL (1.8-7.7) Lymphocytes # (Auto) 1.6 x10^3/uL (1.0-4.8) Monocytes # (Auto) 0.5 x10^3/uL (0.0-1.1) Eosinophils # (Auto) 0.1 x10^3/uL (0.0-0.7) Basophils # (Auto) 0.0 x10^3/uL (0.0-0.2) Sodium Level 138 mmol/L (136-145) Potassium Level 3.8 mmol/L (3.5-5.1) Chloride Level 103 mmol/L (98-107) Carbon Dioxide Level 27 mmol/L (21-32) Anion Gap 8 (6-14) Blood Urea Nitrogen 12 mg/dL (8-26) Creatinine 1.0 mg/dL (0.7-1.3) Estimated GFR (Cockcroft-Gault) 75.7 Glucose Level 133 mg/dL (70-99) Calcium Level 8.2 mg/dL (8.5-10.1) Triglycerides Level 817 mg/dL (0-150) Cholesterol Level 193 mg/dL (0-200) LDL Cholesterol, Calculated mg/dL (0-100) VLDL Cholesterol, Calculated 163 mg/dL (0-40) Non-HDL Cholesterol Calculated 168 mg/dL (0-129) HDL Cholesterol 25 mg/dL (40-60) Cholesterol/HDL Ratio 7.7 Review of Systems Review of Systems: Denies fever, no shortness of breath, denies nausea. Assessment and Plan Assessmemt and Plan Problems Medical Problems: (1) Chest pain Status: Acute (2) Hyperglycemia Status: Acute (3) NSTEMI (non-ST elevated myocardial infarction) Status: Acute Comment Review of Relevant I have reviewed the following items luiza (where applicable) has been applied. Medications: Current Medications Medications (Trade) Dose Ordered Sig/Khurram Route PRN Reason Start Time Stop Time Status Last Admin Dose Admin Aspirin (Senia Aspirin) 325 mg 1X ONCE PO 02/07/20 12:15 02/07/20 12:16 DC 02/07/20 13:27 Enoxaparin Sodium (Lovenox 80mg Syringe) 80 mg Q12HR SQ 02/07/20 15:00 02/07/20 19:10 DC 02/07/20 16:05 Atorvastatin Calcium (Lipitor) 40 mg QHS PO 02/07/20 21:00 02/07/20 20:34 Metoprolol Tartrate (Lopressor) 25 mg BID PO 02/07/20 21:00 02/07/20 20:34 Magnesium Oxide (Magnesium Oxide) 400 mg BID PO 02/07/20 18:00 02/09/20 09:01 02/07/20 18:55 Sodium Chloride 1,000 ml @ 100 mls/hr Q10H IV 02/07/20 18:16 02/08/20 05:11 Insulin Human Lispro (HumaLOG) 0-5 UNITS TIDWMEALS SQ 02/07/20 18:30 02/07/20 18:58 Justifications for Admission Other Justification VARGHESE CRONIN MD Feb 08, 2020 07:49
[2020-02-08] MEDS: INSULIN LISPRO 300 UNITS/3 ML VIAL. SQ SCH ×3 (07:54→17:00)
[2020-02-08] MEDS ORDERED: HEPARIN for ARTERIAL LINE 1,500 ML ONE (07:57)
[2020-02-08] MEDS ORDERED: LIDOCAINE 1% PF 2 ML VIAL. ONE (07:57)
[2020-02-08] MEDS ORDERED: IOHEXOL 300 MG/ML 100ML VIAL. ONE (07:58)
[2020-02-08] MEDS: METOPROLOL TART IMMED RELEASE 25 MG TABLET. PO SCH ×2 (08:08→21:00)
[2020-02-08] MEDS: MAGNESIUM OXIDE 400 MG TABLET PO SCH ×2 (08:08→20:59)
[2020-02-08] MEDS ORDERED: MIDAZOLAM HCL/PF 2 MG/2 ML VIAL. ONE (10:37)
[2020-02-08] MEDS ORDERED: fentaNYL PF VIAL 100 MCG/2 ML VIAL ONE (10:37)
[2020-02-08] MEDS ORDERED: HEPARIN for IV BOLUS 10,000 UNIT/10 ML VIAL. ONE (10:38)
[2020-02-08] MEDS ORDERED: NITROGLYCERIN 200 MCG/2 ML SYRINGE FOR CATH/VASC LAB. ONE (10:38)
[2020-02-08] MEDS ORDERED: VERAPAMIL 5 MG/2 ML VIAL. ONE (10:38)
--- NOTE | 2020-02-08 10:43 | PDOC ---
MODERATE SEDATION ASSESSMENT RISKS/ALTERNATIVES Risks/Alternatives Risks and alternatives of this type of sedation and procedure discussed with: RISK/ALTERNATIVES: Patient H & P ON CHART H & P H & P on chart and reviewed for co-morbid conditions and appropriate labs. H&P ON CHART: Yes STATUS PREG STATUS ASSESSED: N/A MEDS/ALLERGIES REVIEWED Meds/Allergies Reviewed Medications and Allergies including time and route of recently administered narcotics and sedatives. MEDS/ALLERGIES REVIEWED: Yes ASA RATING ASA RATING: II AIRWAY ASSESSMENT Airway Assessment Airway patency, oral function limitations, presence of caps, crowns, dentures, partials, and ability to extend neck assessed. AIRWAY ASSESSMENT: Yes MALLAMPATI SCORE MALLAMPATI SCORE: II PRE-SEDATION ASSESSMENT PRE-SEDATION ASSESSMENT: Yes ARIC JAMES MD Feb 08, 2020 10:43
[2020-02-08] MEDS ORDERED: TIROFIBAN 5MG -0.9% NS 100 ML IV ONE (11:13)
[2020-02-08] MEDS ORDERED: NITROGLYCERIN 200 MCG/2 ML SYRINGE FOR CATH/VASC LAB. IART ONE (11:30)
[2020-02-08] MEDS ORDERED: NITROGLYCERIN 200 MCG/2 ML SYRINGE FOR CATH/VASC LAB. ICAR ONE (11:30)
[2020-02-08] MEDS ORDERED: TIROFIBAN 5MG -0.9% NS 100 ML IV PRN (11:30)
[2020-02-08] MEDS ORDERED: IOHEXOL 300 MG/ML 100ML VIAL. IART ONE (11:30)
[2020-02-08] MEDS ORDERED: HEPARIN for IV BOLUS 10,000 UNIT/10 ML VIAL. IART ONE (11:30)
[2020-02-08] MEDS ORDERED: MIDAZOLAM HCL/PF 2 MG/2 ML VIAL. IV ONE (11:30)
[2020-02-08] MEDS ORDERED: fentaNYL PF VIAL 100 MCG/2 ML VIAL IV ONE (11:30)
[2020-02-08] MEDS ORDERED: LIDOCAINE 1% PF 2 ML VIAL. INJ ONE (11:30)
[2020-02-08] MEDS ORDERED: VERAPAMIL 5 MG/2 ML VIAL. IART ONE (11:30)
[2020-02-08] MEDS ORDERED: HEPARIN for IV BOLUS 10,000 UNIT/10 ML VIAL. IV ONE (11:30)
[2020-02-08] MEDS ORDERED: PRASUGREL 10 MG TABLET. PO ONE (12:00)
[2020-02-08] MEDS ORDERED: ASPIRIN 325 MG TABLET PO ONE (12:00)
[2020-02-08] MEDS ORDERED: IV NORMAL SALINE 500ML BAG 500 ML IV ONE (12:00)
--- NOTE | 2020-02-08 12:57 | CARD ---
MR#: [id number] Date of Study: 02/08/2020 Ordering Physician: ARIC DOMINIQUE, Referring Physician: ARIC DOMINIQUE, Tech: Britany Damon APPROVED REPORT Technologist: Britany Damon Nurse: Juanita Mcneill R.N. Procedure(s) performed: Fluoro Time: 9.0 min Dose: 64.172 Gycm2 Contrast: 131cc's Omni 300 Sedation Time: 58 MIN LHC, Coronary angiography, Left ventriculography PCI of the LAD IVUS of the LAD HISTORY : The patient is a 60 year-old male with a history of . INDICATION The indication(s) include : non-STEMI . [facility] Clinical Frailty Scale [facility] Clinical Frailty Scale: Managing Well Heart Failure Heart Failure: No PROCEDURE NARRATIVE Clinical information: 60-year-old woman who presents to the hospital in the setting of unstable angina with recurrent chest pain within 1 week in the setting of prior history of hypertension, tobacco abuse and elevated tropo fernando. Informed consent: Written informed consent was obtained from the patient after adequate discussion of the risks and rosalinda efits of the procedure. Procedure details: ACCESS: The right wrist was prepped and draped in usual sterile fashion. Under 1% lidocaine local anesthesia a 6 Dutch Terumo sheath was placed in the right radial artery via the Seldinger technique. DIAGNOSTIC ANGIOGRAPHY: Right and left coronary arteries were engaged with a 6 Dutch TIG catheter. Diagnostic angiography i n multiple views were obtained. Next, a 6 Dutch pigtail catheter was placed in the left ventricle a nd a LVEDP was measured. A pullback was performed after left ventriculography. All catheters were e xchanged over J-tip guidewire. FINDINGS: ======= Aorta: 110/80 LVEDP: 15 mmHg Left ventriculogram: Ejection fraction 55% Normal wall motion without any evidence of aortic or mitral insufficiency. Coronary angiography: LM: Large caliber vessel with normal angiographic appearance LAD: Large caliber vessel with a proximal 50% stenosis and a mid 80% stenosis. D1: Small caliber vessel with normal angiographic appearance LCX: Moderate caliber non-dominant vessel with mild luminal irregularities OM1: Moderate caliber vessel with mild diffuse irregularities of up to 30%. RCA: Moderate caliber vessel with proximal 40-50% stenosis. RPDA: Small caliber vessel with mild luminal irregularities. INTERVENTIONAL TECHNIQUE: Heparin and Tirofiban were used for anticoagulation. Through a 6Fr EBU 3.5 guide catheter a 0.014'' P rowater wire was advanced to the LAD. IVUS was used measure the LAD. Balloon angioplasty was performe d with a Trek 2.5 mm x 12 balloon at nominal pressures. Then a Resolute 4.0/26 LAKSHMI was placed and pos t-dilated with a Trek NC balloon at 12 bria. Final angiography demonstrated MANISH 3 flow and no evidenc e of guide or wire related complications. CLOSURE: At case completion the right radial sheath was removed and a Terumo radial band was applied with 11 m L of air. Hemostasis was achieved. COMPLICATIONS: No acute complications noted MANISH Flow MANISH Flow (Pre-Intervention): MANISH-3 MANISH Flow (Post-Intervention): MANISH-3 Conclusion 1. Normal left sided filling pressures. 2. Normal LV systolic function. EF 55% 3. One vessel CAD with successful PCI of the LAD with a Resolute 4.0/26 LAKSHMI Recommendations ASA 81mg daily Prasugrel 10mg daily High dose statin therapy Risk factor modification Cardiac rehab as able in the setting of COVID-19 pandemic. Signed by : Aric Dominique, Electronically Approved : 02/08/2020 12:56:52
--- NOTE | 2020-02-08 14:07 | NUR ---
SS following for discharge planning. SS reviewed pt chart and discussed with pt RN. Pt is from home with spouse and is currently on room air. Pt having heart cath today. SS will continue to follow for discharge planning.
--- NOTE | 2020-02-08 16:25 | EKG ---
[facility] [address] [place] [address] Test Date: 2020-02-07 Test Time: 10:52:44 Pat Name: JEFFERY RODRIGUEZ Department: Room: Gender: M Ammonium Nitrate Neutralizer: : 1960 Requested By: VIKAS PATRICK Order Number: [id number] Reading MD: Measurements Intervals Cunningham Rate: 85 P: 59 TN: 168 QRS: 12 QRSD: 78 T: 35 QT: 340 QTc: 405 Interpretive Statements SINUS RHYTHM NORMAL ECG RI6.02 No previous ECG available for comparison
--- NOTE | 2020-02-08 17:30 | NUR ---
RN NOTE: Patient refused insulin at lunch with blood sugar of 160. Patient also refused insulin at dinner with blood sugar of 160.
[2020-02-08] MEDS: ATORVASTATIN CALCIUM 40 MG TABLET. PO SCH (20:59)
[2020-02-09] MEDS: IV NORMAL SALINE 1000ML BAG 1,000 ML IV SCH (00:16)
[2020-02-09 02:50] VITALS: BP 152/77
[2020-02-09 04:12] LABS: HEMOGLOBIN A1C 7.1 % (4.8-5.6)
[2020-02-09 07:00] VITALS: BP 134/68
[2020-02-09] MEDS ORDERED: ASPIRIN ENTERIC COATED 81 MG TABLET.DR. PO SCH (08:00)
[2020-02-09] MEDS: INSULIN LISPRO 300 UNITS/3 ML VIAL. SQ SCH ×2 (08:00→12:00)
[2020-02-09] MEDS ORDERED: PRASUGREL 10 MG TABLET. PO SCH (08:00)
[2020-02-09] MEDS: METOPROLOL TART IMMED RELEASE 25 MG TABLET. PO SCH (08:34)
[2020-02-09] MEDS: MAGNESIUM OXIDE 400 MG TABLET PO SCH (08:34)
[2020-02-09] MEDS ORDERED: ICOS1CAP PO ×2 (09:42→13:28)
[2020-02-09] MEDS ORDERED: ASPI-886 PO (09:48)
[2020-02-09] MEDS ORDERED: PRAS10TA9 PO (09:48)
[2020-02-09] MEDS ORDERED: ATOR40TA59 PO ×2 (09:48→13:29)
[2020-02-09] MEDS ORDERED: METO25TA4 PO ×2 (09:48→13:28)
[2020-02-09] MEDS ORDERED: LISI2.5T PO ×2 (09:49→13:28)
[2020-02-09 10:35] VITALS: BP 128/74
--- NOTE | 2020-02-09 10:45 | NUR ---
SS following up with discharge planning. SS reviewed pt chart and discussed with pt RN. Pt is currently on room air. Discharge order on the chart for home with self care.
--- NOTE | 2020-02-09 11:04 | CARD ---
MR#: [id number] Date of Study: 02/08/2020 Ordering Physician: DANIELLE BOGGS, Referring Physician: DANIELLE BOGGS, Tech: Sonia Murdock APPROVED REPORT EXAM: Two-dimensional and M-mode echocardiogram with Doppler and color Doppler. Other Information Quality : AverageHR: 78bpm INDICATION Chest Pain Non STEMI RISK FACTORS Hyperlipidemia 2D DIMENSIONS Left Atrium(2D)3.5 (1.6-4.0cm)IVSd1.0 (0.7-1.1cm) Aortic Root(2D)3.1 (2.0-3.7cm)LVDd4.3 (3.9-5.9cm) LVOT Diameter1.9 (1.8-2.4cm)PWd1.1 (0.7-1.1cm) LVDs2.9 (2.5-4.0cm)FS (%) 32.0 % SV50.7 mlLVEF(%)60.3 (>50%) Aortic Valve AoV Peak Brett.93.2cm/sAoV VTI19.8cm AO Peak GR.3.5mmHgLVOT VTI 15.60cm AO Mean GR.3mmHg Mitral Valve MV E Hazuavsi49.6cm/sMV E Peak Gr.3mmHg MV DECEL [id number] A Mkcdfasa98.3cm/s MV E Mean Gr.1mmHgE/A Ratio1.1 TDI Lateral E' P. V11.65cm/sMedial E' P. V8.04cm/s E/Lateral E'5.8E/Medial E'8.4 Tricuspid Valve RAP [id number] Peak Gr.19mmHg [id number] Pulmonary Vein S1 Aixeaikh81.9cm/sS2 Bozpjsdp18.13cm/s D2 Ehemvzov53.1cm/sPVa [id number] LEFT VENTRICLE The left ventricle is normal size. There is normal left ventricular wall thickness. The left ventricu lar systolic function is normal and the ejection fraction is within normal range. The Ejection Fracti on is 50-55%. There is normal LV segmental wall motion. Transmitral Doppler flow pattern is Grade II- pseudonormal filling dynamics. RIGHT VENTRICLE The right ventricle is normal size. There is normal right ventricular wall thickness. The right ventr icular systolic function is normal. ATRIA The left atrium size is normal. The right atrium size is normal. The interatrial septum is intact wit h no evidence for an atrial septal defect or patent foramen ovale as noted on 2-D or Doppler imaging. AORTIC VALVE The aortic valve is thickened but opens well. Doppler and Color Flow revealed no significant aortic r egurgitation. There is no significant aortic valvular stenosis. Calculated aortic valve area is 2.32 cm2 with maximum pressure gradient of 5 mmHg and mean pressure gradient of 3 mmHg. MITRAL VALVE The mitral valve is normal in structure and function. There is no evidence of mitral valve prolapse. There is no mitral valve stenosis. Doppler and Color-flow revealed trace mitral regurgitation. TRICUSPID VALVE The tricuspid valve is normal in structure and function. Doppler and Color Flow revealed trace tricus pid regurgitation with an estimated PAP of 21 mmHg. There is no tricuspid valve stenosis. PULMONIC VALVE The pulmonic valve is not well visualized. Doppler and Color Flow revealed trace pulmonic valvular re gurgitation. There is no pulmonic valvular stenosis. GREAT VESSELS The aortic root is normal in size. The IVC was not well visualized. PERICARDIAL EFFUSION There is no evidence of significant pericardial effusion. Critical Notification Critical Value: No <Conclusion> The left ventricular systolic function is normal and the ejection fraction is within normal range. Th e Ejection Fraction is 50-55%. There is normal LV segmental wall motion. Signed by : Dmitry Dominique, Electronically Approved : 02/09/2020 11:03:34
--- NOTE | 2020-02-09 11:26 | PDOC ---
CARDIO Progress Notes Date and Time Date of Service 02/09/2020 Time of Evaluation 1000 Subjective Subjective: No Chest Pain, No shortness of breath, No Palpitations Vitals Vitals Vital Signs Date Time Temp Pulse Resp B/P (MAP) Pulse Ox O2 Delivery O2 Flow Rate FiO2 02/09/20 10:35 98.0 81 18 128/74 (92) 97 Room Air 98.0 02/08/20 12:01 2.0 Weight Weight [ ] Input and Output Intake and Output Intake and Output 02/09/20 07:00 Intake Total 1520 ml Balance 1520 ml Intake Oral 1520 ml # Voids 8 Laboratory Labs Laboratory Tests Test 02/08/20 12:26 02/08/20 16:35 02/09/20 07:05 02/09/20 11:16 Glucose (Fingerstick) 160 mg/dL (70-99) 160 mg/dL (70-99) 129 mg/dL (70-99) 178 mg/dL (70-99) Physical Exam HEENT: Neck Supple W Full Motion Chest: Symmetric LUNGS: Clear to Auscultation Heart: S1S2, RRR (SR) Abdomen: Soft N/T Extremities: No Edema, No Calf Tenderness Neurology: alert, oriented, follow commands Other Exams Right wrist arteriotomy site intact, no swelling or erythema, neurovascular status intact Assessment Assessment 1. NSTEMI: S/P PCI/LAKSHMI to LAD. EF and WM nml 2. HTN: controlled 3. Hypertriglyceridemia 4. DM2: A1C at 7.1 per PCP Recommendations 1. ASA/effient 2. High dose statin and add vascepa 3. Lisinopril and metoprolol. 4. Cardiac rehab. Follow up in [facility] in 1 month. Dietitian consult Justicifation of Admission Dx: Justifications for Admission: Justification of Admission Dx: Yes CAROLYN MCCLOUD [employer] Feb 09, 2020 11:26
--- NOTE | 2020-02-09 13:10 | NUR ---
Discharge Note: JEFFERY RODRIGUEZ [address] [place] [address] Discharge instructions and discharge home medications reviewed with Patient and a copy given. All questions have been answered and understanding verbalized. The following instructions and handouts were given: discharge instructions, new medications info, NSTEMI info, CP info, post cath info, follow up. Discontinued lines and drains: Peripheral IV intact. Patient discharged to Home or Self Care with spouse via Wheelchair. [facility] nursing unit manager talked to patient before he discharged about diet. Faxed cardiac rehab referral. Dr. Hopkins sent refills in for medications per VIRGINIA Barber's request.
--- NOTE | 2020-02-09 13:38 | PDOC3 ---
Discharge Summary Visit Information Date of Admission: Feb 07, 2020 Date of Discharge: Feb 09, 2020 Final Diagnosis NSTEMI CVC BED Consult cardiology sq lovenox 80 mg bid statin rx beta-leobardo ASA CARDIAC CATH IN am FLP Problems Medical Problems: (1) Chest pain Status: Acute (2) Hyperglycemia Status: Acute (3) NSTEMI (non-ST elevated myocardial infarction) Status: Acute Brief Hospital Course Allergies Allergies Coded Allergies Type Severity Reaction Last Updated Verified No Known Drug Allergies 02/07/20 No Vital Signs Vital Signs Date Time Temp Pulse Resp B/P (MAP) Pulse Ox O2 Delivery O2 Flow Rate FiO2 02/09/20 10:35 98.0 81 18 128/74 (92) 97 Room Air 98.0 02/08/20 12:01 2.0 Lab Results Laboratory Tests Test 02/07/20 14:03 02/07/20 17:55 02/07/20 18:51 02/07/20 22:42 Troponin I Quantitative 0.325 ng/mL (0.000-0.055) 0.442 ng/mL (0.000-0.055) Glucose (Fingerstick) 251 mg/dL (70-99) 116 mg/dL (70-99) Test 02/08/20 05:25 02/08/20 07:46 02/08/20 08:15 02/08/20 12:26 White Blood Count 6.5 x10^3/uL (4.0-11.0) Red Blood Count 5.25 x10^6/uL (4.30-5.70) Hemoglobin 16.5 g/dL (13.0-17.5) Hematocrit 47.0 % (39.0-53.0) Mean Corpuscular Volume 90 fL (79-100) Mean Corpuscular Hemoglobin 31 pg (25-35) Mean Corpuscular Hemoglobin Concent 35 g/dL (31-37) Red Cell Distribution Width 12.8 % (11.5-14.5) Platelet Count 156 x10^3/uL (140-400) Neutrophils (%) (Auto) 66 % (31-73) Lymphocytes (%) (Auto) 24 % (24-48) Monocytes (%) (Auto) 8 % (0-9) Eosinophils (%) (Auto) 2 % (0-3) Basophils (%) (Auto) 1 % (0-3) Neutrophils # (Auto) 4.3 x10^3/uL (1.8-7.7) Lymphocytes # (Auto) 1.6 x10^3/uL (1.0-4.8) Monocytes # (Auto) 0.5 x10^3/uL (0.0-1.1) Eosinophils # (Auto) 0.1 x10^3/uL (0.0-0.7) Basophils # (Auto) 0.0 x10^3/uL (0.0-0.2) Sodium Level 138 mmol/L (136-145) Potassium Level 3.8 mmol/L (3.5-5.1) Chloride Level 103 mmol/L (98-107) Carbon Dioxide Level 27 mmol/L (21-32) Anion Gap 8 (6-14) Blood Urea Nitrogen 12 mg/dL (8-26) Creatinine 1.0 mg/dL (0.7-1.3) Estimated GFR (Cockcroft-Gault) 75.7 Glucose Level 133 mg/dL (70-99) Calcium Level 8.2 mg/dL (8.5-10.1) Triglycerides Level 817 mg/dL (0-150) Cholesterol Level 193 mg/dL (0-200) LDL Cholesterol, Calculated mg/dL (0-100) VLDL Cholesterol, Calculated 163 mg/dL (0-40) Non-HDL Cholesterol Calculated 168 mg/dL (0-129) HDL Cholesterol 25 mg/dL (40-60) Cholesterol/HDL Ratio 7.7 Glucose (Fingerstick) 142 mg/dL (70-99) 160 mg/dL (70-99) SARS-CoV-2 Antigen (Rapid) Negative (NEGATIVE) Test 02/08/20 16:35 02/09/20 07:05 02/09/20 11:16 Glucose (Fingerstick) 160 mg/dL (70-99) 129 mg/dL (70-99) 178 mg/dL (70-99) Laboratory Tests Test 02/08/20 16:35 02/09/20 07:05 02/09/20 11:16 Glucose (Fingerstick) 160 mg/dL (70-99) 129 mg/dL (70-99) 178 mg/dL (70-99) Brief Hospital Course Mr. 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, stented drug iluding CV following, many new meds Discharge Information Condition at Discharge: Improved Follow Up: Weeks Disposition/Orders: D/C to Home Scheduled Aspirin (Aspirin Ec) 81 Mg Tablet.dr, 81 MG PO DAILYWBKFT for cardiac, #100 Prescribed by: SHAYAN VALENTIN on 02/09/20 0948 Atorvastatin Calcium (Atorvastatin Calcium) 40 Mg Tablet, 40 MG PO QHS for cholesterol, #30 Ref 3 Prescribed by: SHAYAN VALENTIN on 02/09/20 1329 Icosapent Ethyl (Vascepa) 1 Gm Capsule, 2 CAP PO BID for triglycerides for 30 Days, #120 Ref 3 Prescribed by: SHAYAN VALENTIN on 02/09/20 1328 Info (No Known Medications Prior To Admisstion) Each, 1 EACH for , (Reported) Entered as Reported by: CINDY GILLIS RN on 02/07/201753 Last Action: New Order on 02/07/201753 by CINDY GILLIS RN Lisinopril (Lisinopril) 2.5 Mg Tablet, 1 TAB PO DAILY for cardiac, #30 Ref 2 Prescribed by: SHAYAN VALENTIN on 02/09/20 1328 Metoprolol Tartrate (Metoprolol Tartrate) 25 Mg Tablet, 25 MG PO BID for cardiac, #60 Ref 3 Prescribed by: SHAYAN VALENTIN on 02/09/20 1328 Prasugrel Hcl (Effient) 10 Mg Tablet, 10 MG PO DAILYWBKFT for cardiac, , #30 Ref 3 Prescribed by: SHAYAN VALENTIN on 02/09/20 0948 Patient Instructions Patient Instructions face to face x2 long discussion with patient and , they were concerned about the side effects of the meds, we went though each med and discussed pro/con as why he needed them, and they made me rank which were most important, like he may choose to not take the statin or the lisinopril. I stressed the effient, and metoprolol and statin, will f/u CV time about an hour total Justicifation of Admission Dx: Justifications for Admission: Justification of Admission Dx: Yes SHAYAN VALENTIN MD Feb 09, 2020 13:38
== END 2020-02-09 14:05 | disposition home or self-care (01) | DRG 282 ==
LOC: ER 10:47 → ED HOLD 14:31 → 2 SOUTH 17:09
PROVIDERS: ADMIT Family Medicine; ATTEND Family Medicine
PROC: 4A023N7 Measurement of Cardiac Sampling and Pressure, Left Heart, Percutaneous Approach (ICD-10-PCS; principal; 2020-02-08)
PROC: B2111ZZ Fluoroscopy of Multiple Coronary Arteries using Low Osmolar Contrast (ICD-10-PCS; 2020-02-08)
PROC: B2151ZZ Fluoroscopy of Left Heart using Low Osmolar Contrast (ICD-10-PCS; 2020-02-08)
DX: I21.4 Non-ST elevation (NSTEMI) myocardial infarction (principal); E11.65 Type 2 diabetes mellitus with hyperglycemia; E78.1 Pure hyperglyceridemia; I10 Essential (primary) hypertension; E78.5 Hyperlipidemia, unspecified; Z20.828 Contact with and (suspected) exposure to other viral communicable diseases; Z87.891 Personal history of nicotine dependence; Z82.49 Family history of ischemic heart disease and other diseases of the circulatory system
CPT/HCPCS: 36415; 71045; 80048; 80053; 80061; 80307; 81001; 82962; 83036; 83735; 83880; 84443; 84484; 85025; 85610; 87426; 92928; 92978; 93005; 93306; 93458; 96360; 96372; 99152; 99153; C1753; C1769; C1874; C1887; C1892; J1644; J1650; J1815; J2250; J3010; J3490; J7030; J7040; Q9967; U0003; 99285-25; C1725; G0378; J3246

== ENCOUNTER → 2021-03-15 | Outpatient (CLI) | payer OTHER ==
[~2021-03-15] MED LIST: ASPI-886 PO; ATOR40TA59 PO; ICOS1CAP PO; LISI2.5T12 PO; METO25TA4 PO; PRAS10TA9 PO
--- NOTE | 2021-03-15 12:22 | RAD ---
MR#: [id number] Date of Study: 03/15/2021 Ordering Physician: ARIC JAMES, Referring Physician: KALI KHAN Tech: APPROVED REPORT Test Type: Exercise Stress Nurse/Tech: Sarahi Dunbar RN Test Indications: Stent placed in 2019 Cardiac History: Hypertension,CAD Medications: See Electronic Medical Record Medical History: See Electronic Medical Record Resting ECG: SR Resting Heart Rate: 66 bpm Resting Blood Pressure: 124/68mmHg Pretest Chest Pain: No chest pain Nurse/Tech Notes S1,S2 and lungs clear to auscultation. Consent: The procedure was explained to the patient in lay terms. Informed consent was witnessed. Jun eout was entered into [facility]. History and Stress Test performed by LUI Billy, ARRT (R) (N) Stress Symptoms Fatigue POST EXERCISE Reason for Termination: Reached target heart rate, Fatigue Target HR: Yes Max HR: 135 bpm 101% of Maximum Predicted HR: 133 bpm Exercise duration: 6:02 min:sec, 2 Stage Exercise capacity: 10METs Max Blood Pressure: 141/69mmHg Blood Pressure response to exercise: Normal blood pressure response during stress. Heart Rate response to exercise: WNL Chest Pain: No. Arrhythmia: No. ST Change: No. INTERPRETATION Stress EKG Conclusion: Baseline EKG showed sinus rhythm. No ischemic changes at peak stress. No arr hythmias. Conclusion 1. Treadmill exercise stress electrocardiogram did not show any diagnostic evidence of inducible isch emia. 2. Patient had good activity tolerance Signed by : Larry Posey, Electronically Approved : 03/15/2021 12:21:48
== END ==
LOC: NM 08:22
PROVIDERS: ATTEND Internal Medicine Cardiovascular Disease
DX: I25.10 Atherosclerotic heart disease of native coronary artery without angina pectoris (principal)
CPT/HCPCS: 93017